=== PATIENT | female | born 1990 | race Caucasian/White ===

== ENCOUNTER → 2016-09-26 | Outpatient (REF) | payer OTHER | LOC: M LAB REF 16:54 | PROVIDERS: ATTEND Obstetrics & Gynecology | DX: Z36 Encounter for antenatal screening of mother (principal); Z3A.00 Weeks of gestation of pregnancy not specified ==

== ENCOUNTER 2016-10-11 01:03 | Inpatient (IN) | payer OTHER ==
[~2016-10-11] VITALS: Ht 162.6 cm; Wt 72.0 kg
[2016-10-11] VITALS (29 sets, daily range): BP systolic 92–220; BP diastolic 50–158
[2016-10-11 02:30] LABS: MEAN CORPUSCULAR HEMOGLOBIN 30.1 pg (27.0-33.0); MEAN CORPUSCULAR HGB CONC 33.6 g/dl (32.0-36.5); MEAN CORPUSCULAR VOLUME 89.5 fl (80.0-96.0); RED CELL DISTRIBUTION WIDTH 13.4 % (11.5-14.5); WHITE BLOOD COUNT 14.4 K/mm3 (4.0-10.0)
[2016-10-11] MEDS ORDERED: LACTATED RINGER'S 1000 ML IV STA (02:50)
[2016-10-11] MEDS ORDERED: LR 1,000 ML IV SCH (02:50)
--- NOTE | 2016-10-11 02:55 | HPEPDOC ---
Obstetrical History & Physical General Date of Admission Oct 11, 2016 at 01:24 History of Present Illness Patient is a 26-year-old female who is a at 38 weeks 2 days gestation with an KRISTI of 10/23/2016 based off of a first trimester ultrasound. Patient presents to labor and delivery with complaints of contractions that started at 2100 on 10/10/2016 and became regular at midnight. She initiated her care at [facility] in her first trimester. Her OB care has been uncomplicated. She reports active movement and denies leaking of fluid or vaginal bleeding. 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 Occupation: teacher. Marital Status: Single Family situation: Spouse/partner home Psychosocial History: No pertinent psych hx * Smoker: non-smoker Alcohol: denies Drugs: denies Abuse Violence Screening Have you been hit/kicked/slapp: No Have you been sexually assault: No Imunizations Tdap status: current (09/26/16) Allergies Coded Allergies: No Known Drug Allergy (Unverified Allergy, Unknown, 10/13/15) Physical Examination Physical Examination GENERAL: Alert and oriented times three. BREAST: . ABDOMEN: Gravid and non-tender to touch. FETUS: Is vertex (VTX) by sterile vaginal examination (SVE), fetus is vertex ( VTX) by Marquis. HEART RATE: Regular rate and rhythm. LUNGS: Clear to auscultation (CTA). EXTREMITIES: No edema. No clonus. Deep tendon reflexes (DTRs) + 2. Vital Signs/I&O Blood pressure 141/87, heart rate 70, temperature 97.6F, respirations 20. Laboratory Data 24H LABS Laboratory Tests 2 10/11/16 01:31: Serology Scanned Report Hepatitis B Testing 10/11/16 01:45: CBC/BMP Laboratory Tests 10/11/16 01:45 Red Blood Count 4.44, Mean Corpuscular Volume 89.5, Mean Corpuscular Hemoglobin 30.1, Mean Corpuscular Hemoglobin Concent 33.6, Red Cell Distribution Width 13.4 Urine Culture: No Growth Pertinent Laboratoy Data Blood Type: O+ RBC Antibody Screen: Negative HIV: Negative Hepatitis B: Negative Rapid Plasma Reagin: Nonreactive Rubella: Immune Chlamydia/Gonorrhea: Negative Group B Streptococcus: Negative Quad Screen Test: Declined Glucose Tolerance Test: 107 Anatomy Ultrasound Ultrasound Date: Jun 07, 2016 Normal Anatomy: Yes Placenta Previa: No Vaginal Examination Dilation: 6 cm Effacement: Other (50%) Station: -2 Cervical Consistency: Soft Presentation: Cephalic presentation Position: Vertex (occiput) Assessment Heart Rate (FHR): 110 Variability: Moderate Accelerations: Positive Decelerations: Early Tocometer Contractions: Yes Frequency: regular, every 2-4 min. Strength: palpated as moderate Multi-drug resistant Organism: No history of MDRO Assessment/Plan Assessment IUP at 38 weeks 2 days gestation Active labor at term Plan Admit to labor and delivery, IV per protocol, labs per protocol, OOB ad ford, clear liquid diet, consult for epidural if patient desires. Anticipate cervical change. NOLVIA RODRIGUES CNM Oct 11, 2016 02:55
[2016-10-11] MEDS ORDERED: BICITRA 30ML SOLN UDC PO ONE (03:00)
[2016-10-11] MEDS ORDERED: FENTANYL 2MCG/ML ROPIVACAINE 0.2% NACL 250 ML CADD As Ordered ONE (03:08)
[2016-10-11] MEDS ORDERED: ePHEDrine SULFATE 25 MG/5 ML(5MG/ML) SYRINGE As Ordered ONE (04:22)
--- NOTE | 2016-10-11 05:12 | IPNPDOC ---
Obstetrical Progress Note Date of Service The patient was seen on 10/11/16 at 03:17. Progress Note SUBJECTIVE: Patient received epidural for pain management. Reports she is comfortable with the epidural. OBJECTIVE: Heart rate: 110, moderate variability, early decelerations, positive accelerations, contractions every 2-3 minutes. Vital signs: Blood pressure 134/80, heart rate 63, respirations 20. ASSESSMENT: IUP at 38 weeks 2 days gestation, active labor, category 1 heart rate tracing PLAN: Anticipate cervical change and spontaneous vaginal delivery. NOLVIA RODRIGUES CNM Oct 11, 2016 05:12
--- NOTE | 2016-10-11 05:17 | IPNPDOC ---
Obstetrical Progress Note Date of Service The patient was seen on 10/11/16 at 03:35. Progress Note SUBJECTIVE: Patient comfortable with no complaints. OBJECTIVE: heart rate baseline 110 with a 6 minute deceleration. SVE: 7/90 /0. scalp electrode placed. Treat uterine resuscitation done to include IV fluid bolus, position change, and oxygen applied. Her heart rate back to baseline after 6 minute deceleration. Vital signs: Blood pressure 95/53, heart rate 84, SPO2 100%. ASSESSMENT: IUP at 38 weeks 2 days gestation, active labor, category 2 heart rate tracing PLAN: Continue with necessary intrauterine resuscitation efforts as necessary. Consider ephedrine via IV if blood pressures do not crease after the bolus. NOLVIA RODRIGUES CNM Oct 11, 2016 05:17
--- NOTE | 2016-10-11 05:27 | IPNPDOC ---
Obstetrical Progress Note Date of Service The patient was seen on 10/11/16 at 04:50. Progress Note SUBJECTIVE: No complaints. Patient has been sleeping. OBJECTIVE: heart rate baseline 125, moderate variability, no decelerations , positive accelerations. Contractions every 2-3 minutes. Vital signs: Blood pressure 107/85, heart rate 63. A dose of ephedrine was given over 0426 due to heart rate baseline changes related to lower blood pressure. ASSESSMENT: IUP at 38 weeks 2 days gestation, active labor, category 1 heart rate tracing PLAN: Anticipate cervical change and spontaneous vaginal delivery. NOLVIA RODRIGUES CNM Oct 11, 2016 05:26
[2016-10-11] MEDS ORDERED: OXYTOCIN 30 UNITS IN 0.9% NaCl 500ML IV BAG (J2590) As Ordered ONE (07:23)
[2016-10-11 08:52] LABS: CORD GAS ABE A -9.2; CORD GAS ABE V -6.8; CORD GAS HCO3 A 21.5 MEQ/L; CORD GAS HCO3 V 22.1 MEQ/L; CORD GAS O2 SAT A 42.9 %; CORD GAS O2 SAT V 35.8 %; CORD GAS PCO2 A 66.5 mmHg; CORD GAS PCO2 V 57.2 mmHg; CORD GAS PH A 7.127 UNITS; CORD GAS PH V 7.205 UNITS; CORD GAS PO2 A 24.2 mmHg; CORD GAS PO2 V 19.3 mmHg; CORD GAS SBC V 17.6 MEQ/L; CORD GAS TCO2 A 23.5 MEQ/L; CORD GAS TCO2 V 23.9 MEQ/L
[2016-10-11] MEDS ORDERED: ePHEDrine SULFATE 25 MG/5 ML(5MG/ML) SYRINGE IV PRN (09:00)
[2016-10-11] MEDS ORDERED: REFRIGERATOR IV KEYS XX PRN (09:00)
[2016-10-11] MEDS ORDERED: LACTATED RINGER'S 1000 ML IV PRN (09:00)
[2016-10-11] MEDS ORDERED: diphenhydrAMINE INJ 50MG/ML VIAL (J1200) IV PRN (09:00)
[2016-10-11] MEDS: PRENATAL VITAMIN TAB PO SCH (09:00)
[2016-10-11] MEDS ORDERED: EPIDURAL/PCA KEYS XX PRN (09:00)
[2016-10-11] MEDS ORDERED: NALOXONE INJ 0.4 MG/1 ML VIAL (J2310) IV PRN (09:00)
[2016-10-11] MEDS ORDERED: FENTANYL/ROPIVACAINE/NACL CADD 250 ML EPIDURAL SCH (09:00)
[2016-10-11] MEDS ORDERED: ONDANSETRON 4MG/2ML VIAL (J2405) IV PRN (09:00)
[2016-10-11] MEDS ORDERED: EPIDURAL COMMENT XX SCH (09:00)
[2016-10-11] MEDS ORDERED: OXYTOCIN DRIP 30 UNITS in APPROPRIATE DILUENT 1 EA IV SCH (09:14)
[2016-10-11] MEDS ORDERED: ACETAMINOPHEN 500 MG TAB PO PRN (09:15)
[2016-10-11] MEDS ORDERED: METHYLERGONOVINE MALEATE 0.2 MG TAB PO PRN (09:15)
[2016-10-11] MEDS ORDERED: MEASLES,MUMPS,RUBELLA VACCINE INJ (MMR-II) (90707) SC SCH (09:15)
[2016-10-11] MEDS ORDERED: DIBUCAINE 1% OINTMENT 30GM TOP PRN (09:15)
[2016-10-11] MEDS ORDERED: DOCUSATE SODIUM 100 MG CAP PO PRN (09:15)
[2016-10-11] MEDS ORDERED: RHOGAM 300 MCG (1500 IU) INJ (J2790) IM SCH (09:15)
[2016-10-11] MEDS ORDERED: ANUSOL HC CREAM 30GM TOP PRN (09:15)
--- NOTE | 2016-10-11 09:26 | DNPDOC ---
Delivery Note Delivery Note Nicole Is a 26-year-old now G 1 P 1001 at 38.2 weeks' gestation who presented to labor and delivery in active labor. She received an epidural for pain management. She progressed to fully dilated at 0720. A moderate amount of clear fluid noted with pushing. Patient pushed to a spontaneous vaginal delivery at 0835 to a living male in the ELIZABETH position with restitution to ROT. No nuchal cord noted. Shoulders delivered with ease and the corpus immediately followed. A moderate amount of thick meconium noted after delivery of the corpus. Baby placed on maternal abdomen it was crying and active with stimulation. Cord clamped 2 and cut by father of the baby after the cord stopped pulsating. Cord gases obtained and cord blood obtained. Multiple variable D cells were noted during labor along with a low heart rate baseline. Spontaneous delivery of intact placenta with a three-vessel cord by Augustine mechanism at 0844. Placenta sent to pathology due to the presence of a long cord, meconium at delivery, and then insertion of the cord. Uterine hemostasis achieved by rapid infusion of IV Pitocin and uterine fundal massage. Perineum and vagina inspected and found to Bilateral labial lacerations. The right labial laceration was repaired with a 4. 0 Vicryl Rapide. EBL 400. Infant's 9/ 10. Weight 7 lbs. 2 oz, 3224 g. [place]'s name is Guzman and is breast-feeding. Mom and baby stable and doing well. Item Value Date Time Cord Arterial Blood pH 7.127 UNITS 10/11/16846 Cord Arterial Blood PCO2 66.5 mmHg 10/11/16846 Cord Arterial Blood PO2 24.2 mmHg 10/11/16846 Cord Arterial Blood HCO3 21.5 MEQ/L 10/11/16846 Cord Arterial Blood Total CO2 23.5 MEQ/L 10/11/16846 Cord Arterial Blood Base Excess -9.2 10/11/16846 Cord Arterial Base Excess (Standard 16.0 MEQ/L 10/11/16846 Cord Arterial Bld Oxygen Saturation 42.9 % 10/11/16846 Cord Venous Blood pH 7.205 UNITS 10/11/16846 Cord Venous Blood PO2 19.3 mmHg 10/11/16846 Cord Venous Blood PCO2 57.2 mmHg 10/11/16846 Cord Venous Blood HCO3 22.1 MEQ/L 10/11/16846 Cord Venous Blood Total CO2 23.9 MEQ/L 10/11/16846 Cord Venous Base Excess (Actual) -6.8 10/11/16846 Cord Venous Base Excess (Standard) 17.6 MEQ/L 10/11/16846 Cord Venous Blood Oxygen Saturation 35.8 % 10/11/16846 NOLVIA RODRIGUES CNM Oct 11, 2016 09:26
[2016-10-11] MEDS: IBUPROFEN 800 MG TAB PO PRN (11:20)
[2016-10-12 06:14] VITALS: BP 122/77
[2016-10-12] MEDS: IBUPROFEN 800 MG TAB PO PRN ×2 (09:19→21:02)
[2016-10-12] MEDS: PRENATAL VITAMIN TAB PO SCH (09:19)
[2016-10-12 18:00] VITALS: BP 126/70
[2016-10-13 05:54] VITALS: BP 125/82
[2016-10-13] MEDS: IBUPROFEN 800 MG TAB PO PRN (07:52)
[2016-10-13] MEDS: PRENATAL VITAMIN TAB PO SCH (08:51)
[2016-10-13] MEDS ORDERED: IBUP-1114 PO (10:30)
[2016-10-13] MEDS ORDERED: PRENTAB9 PO (10:30)
[2016-10-13] MEDS ORDERED: ACET50TA PO (10:30)
== END 2016-10-13 11:20 | disposition home or self-care (01) | DRG 775 ==
LOC: M LDO 01:03 → M LDI 01:24 → M OBS 10:52
PROVIDERS: ADMIT Obstetrics & Gynecology; ATTEND Advanced Practice Midwife
PROC: 10E0XZZ Delivery of Products of Conception, External Approach (ICD-10-PCS; principal; 2016-10-11)
PROC: 0HQ9XZZ Repair Perineum Skin, External Approach (ICD-10-PCS; 2016-10-11)
DX: O70.0 First degree perineal laceration during delivery (principal); Z3A.38 38 weeks gestation of pregnancy; O76 Abnormality in fetal heart rate and rhythm complicating labor and delivery; O77.0 Labor and delivery complicated by meconium in amniotic fluid; Z37.0 Single live birth

== ENCOUNTER → 2017-05-06 | Outpatient (CLI) | payer OTHER ==
[~2017-05-06] MED LIST: ACET50TA PO; IBUP-1114 PO; PRENTAB9 PO
--- NOTE | 2017-05-06 11:10 | REP ---
RIGHT FOOT, FOUR VIEWS: HISTORY: Contusion. There is no acute fracture or dislocation. The joint spaces are normal in appearance. IMPRESSION: There is no acute fracture or dislocation. Signed by Praful Toure MD 05/06/2017 11:47 A
== END ==
LOC: M WUC 09:52
PROVIDERS: ATTEND Physician Assistant
DX: S90.31XA Contusion of right foot, initial encounter (principal); X58.XXXA Exposure to other specified factors, initial encounter; Y92.89 Other specified places as the place of occurrence of the external cause; Y93.89 Activity, other specified; Y99.8 Other external cause status

== ENCOUNTER → 2018-01-14 | Outpatient (REF) | payer OTHER ==
[2018-01-14 17:35] LABS: MEAN CORPUSCULAR HGB CONC 34.2 g/dl (32.0-36.5); MEAN CORPUSCULAR VOLUME 84.6 fl (80.0-96.0); PLATELET COUNT, AUTOMATED 261 10^3/uL (150-450); RED BLOOD COUNT 4.49 10^6/uL (4.00-5.40); RED CELL DISTRIBUTION WIDTH 13.2 % (11.5-14.5); WHITE BLOOD COUNT 10.1 10^3/uL (4.0-10.0)
[2018-01-14 20:06] LABS: HCG, SERUM QUANTITATIVE 13774 MIU/ML
[2018-01-16 11:13] LABS: RUBELLA IgG QUALITATIVE IMMUNE (IMMUNE)
[2018-01-16 11:34] LABS: HEPATITIS B SURFACE ANTIGEN NEGATIVE (NEGATIVE)
[2018-01-16 11:43] LABS: HIV 1&2 SCREEN CENTAUR NEGATIVE (NEGATIVE)
== END ==
LOC: M LAB REF 16:36
DX: O36.80X0 Pregnancy with inconclusive fetal viability, not applicable or unspecified (principal); Z3A.00 Weeks of gestation of pregnancy not specified

== ENCOUNTER → 2018-02-18 | Outpatient (REF) | payer OTHER | LOC: M LAB REF 17:12 | DX: Z34.81 Encounter for supervision of other normal pregnancy, first trimester (principal); Z36.89 Encounter for other specified antenatal screening ==

== ENCOUNTER → 2018-03-18 | Outpatient (REF) | payer OTHER ==
[2018-03-19 09:23] LABS: CHLAMYDIA DNA AMPLIFICATION NEGATIVE (NEGATIVE); GC DNA AMPLIFICATION NEGATIVE (NEGATIVE)
== END ==
LOC: M LAB REF 17:01
DX: Z34.82 Encounter for supervision of other normal pregnancy, second trimester (principal); Z3A.00 Weeks of gestation of pregnancy not specified

== ENCOUNTER → 2018-06-18 | Outpatient (CLI) | payer OTHER ==
[2018-06-18 16:47] LABS: HEMATOCRIT 35.6 % (36.0-47.0); HEMOGLOBIN 11.9 g/dl (12.0-15.5); MEAN CORPUSCULAR HEMOGLOBIN 29.9 pg (27.0-33.0); MEAN CORPUSCULAR HGB CONC 33.4 g/dl (32.0-36.5); MEAN CORPUSCULAR VOLUME 89.4 fl (80.0-96.0); PLATELET COUNT, AUTOMATED 177 10^3/uL (150-450); RED BLOOD COUNT 3.98 10^6/uL (4.00-5.40); RED CELL DISTRIBUTION WIDTH 12.8 % (11.5-14.5); WHITE BLOOD COUNT 13.7 10^3/uL (4.0-10.0)
[2018-06-18 17:03] LABS: GLUCOSE CHALLENGE TEST 1 HOUR 87 MG/DL (LESS THAN 140)
== END ==
LOC: M LAB 15:07
DX: Z34.82 Encounter for supervision of other normal pregnancy, second trimester (principal); Z36.89 Encounter for other specified antenatal screening
CPT/HCPCS: 82950

== ENCOUNTER 2018-07-22 20:42 | Outpatient (CLI) | payer OTHER | END 2018-07-22 22:04 | disposition home or self-care (01) | LOC: M LDO 20:42 | DX: O26.893 Other specified pregnancy related conditions, third trimester (principal); Z3A.33 33 weeks gestation of pregnancy | CPT/HCPCS: 59025 ==

== ENCOUNTER → 2018-07-27 | Outpatient (CLI) | payer OTHER ==
[~2018-07-27] MED LIST changes: -ACET50TA PO; +MAPA500T17 PO
--- NOTE | 2018-07-28 04:49 | REP ---
Clinical: Pelvic pain with left ovarian cyst . Technique: Transabdominal pelvic ultrasound with color Doppler evaluation of the ovaries. Findings: Bladder is collapsed. The patient is 33 weeks (FHR equals 153 bpm). Right ovary is normal in appearance of vascularity without torsion measuring 1.9 x 1.1 x 2.2 cm. Left ovary is normal in vascularity and measures 5.4 x 3.4 x 4.8 cm (RI 0.57) with 3.7 cm simple cyst and 3.1 cm complex cyst. Impression: 1. Simple and complex left ovarian cysts. 2. No evidence for torsion. 3. 33 weeks . Electronically Signed by Osbaldo Mota MD 07/28/2018 04:41 A
== END ==
LOC: M RAD 16:08
PROVIDERS: ATTEND Advanced Practice Midwife
DX: N83.292 Other ovarian cyst, left side (principal); Z36.89 Encounter for other specified antenatal screening; Z3A.33 33 weeks gestation of pregnancy

== ENCOUNTER → 2018-08-14 | Outpatient (REF) | payer OTHER ==
[~2018-08-14] MED LIST changes: -MAPA500T17 PO; +MAPA500T2 PO
== END ==
LOC: M LAB REF 17:07
PROVIDERS: ATTEND Advanced Practice Midwife
DX: Z34.83 Encounter for supervision of other normal pregnancy, third trimester (principal)

== ENCOUNTER 2018-08-27 14:21 | Inpatient (IN) | payer OTHER ==
[2018-08-27] VITALS (23 sets, daily range): BP systolic 98–144; BP diastolic 54–90
[~2018-08-27] VITALS: Ht 162.6 cm; Wt 78.0 kg
[2018-08-27] MEDS ORDERED: CALCIUM CARBONATE 500 MG CHEW U/D PO ONE (15:00)
[2018-08-27] MEDS ORDERED: LACTATED RINGER'S 1000 ML IV STA (16:39)
[2018-08-27] MEDS ORDERED: LR 1,000 ML IV SCH (16:39)
[2018-08-27] MEDS ORDERED: PROMETHAZINE INJ 25 MG/ML VIAL (J2550) IV ONE (17:00)
[2018-08-27] MEDS ORDERED: BUTORPHANOL 2 MG/ML INJ (J0595) IV ONE (17:00)
--- NOTE | 2018-08-27 17:30 | HPEPDOC ---
Obstetrical History & Physical General Date of Admission Aug 27, 2018 at 14:21 Primary Care Physician: NOLVIA RODRIGUES CNM History of Present Illness Patient is a 28-year-old female who is a at 38.4 weeks gestation with an KRISTI of 09/06/18 based off of her LMP and consistent with her first trimester ultrasound. She initiated care in her first trimester. Her has been complicated by a large ovarian cyst at 9 cm. She presents to L&D in active labor. She reports bloody show and active movement. She denies leaking of fluid. Chief Complaint: Active Labor Information Provided By: Patient Age: 28 : 2 Term: 1 Pre-term: 0 Abortions: 0 Livin Care Care: Good Care Dating Final EDC: Aug 27, 2018 Final EDC by: LMP LMP: Nov 30, 2017 EGA at Admission: 38.4 Antepartum Course Height (inches): 64 Pre- weight (lbs.): 148 Admission Weight (lbs.): 175 Change in Weight (lbs.): 27 Past Medical History Past Obstetrical History : Past Obstetrical History: Primgravida Gestation: 38.2 Type of Delivery: Spontaneous Vaginal Del. 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 Past Medical History Medical History varicella as a child ovarian cysts Surgical History: Denies/None Family History Significant Family History: Hypertension, Other (dementia) Social History Marital Status: Psychosocial History: No pertinent psych hx * Smoker: non-smoker Alcohol: Denies Drugs: denies Abuse Violence Screening Have you been hit/kicked/slapp: No Have you been sexually assault: No Imunizations Tdap status: current Allergies Coded Allergies: No Known Drug Allergy (Unverified Allergy, Unknown, 08/27/18) Medications Scheduled Multivitamins/ ( 27-0.8 mg) 1 Tab Tab, 1 TAB PO DAILY Physical Examination Physical Examination GENERAL: Alert and oriented times three. BREAST: . ABDOMEN: Gravid and non-tender to touch. FETUS: Is vertex (VTX) by sterile vaginal examination (SVE), fetus is vertex (VTX) by Marquis. HEART RATE: Regular rate and rhythm. LUNGS: Clear to auscultation (CTA). EXTREMITIES: No edema. No clonus. Deep tendon reflexes (DTRs) + 2. Laboratory Data 24H LABS Laboratory Tests 2 08/27/18 14:26: Serology Scanned Report Hepatitis B Testing Urine Culture: No Growth Pertinent Laboratoy Data Blood Type: O+ RBC Antibody Screen: Negative HIV: Negative Hepatitis B: Negative Hepatitis C: Negative Rapid Plasma Reagin: Nonreactive Rubella: Immune Chlamydia/Gonorrhea: Negative Group B Streptococcus: Negative Glucose Tolerance Test: 87 Anatomy Ultrasound Ultrasound Date: Apr 10, 2018 Placenta Location: Anterior Normal Anatomy: Yes Placenta Previa: No Vaginal Examination Dilation: 5 cm Effacement: 80% Station: -3 Cervical Consistency: Soft Cervical Position: Posterior Presentation: Cephalic presentation Position: Vertex (occiput) Assessment Heart Rate (FHR): 140 Variability: Moderate Accelerations: Positive Decelerations: Variable Tocometer Contractions: Yes Frequency: every 2-5 min. Strength: palpated as moderate Multi-drug resistant Organism: No history of MDRO Assessment/Plan Assessment IUP at 38.4 weeks gestation active labor GBS negative Category II FHR tracing Plan Admit to L&D. OOB ad ford Communications Marketing Intern and consent. Diet: clears. Group B Streptococcus (GBS) negative. Labs and intravenous (IV) per unit protocol. Lactated Ringers (LR): Bolus 800 mL, then at 125 mL/hr. Anticipate cervical change and . NOLVIA RODRIGUES CNM Aug 27, 2018 17:30
--- NOTE | 2018-08-27 17:33 | IPNPDOC ---
Text Note Date of Service The patient was seen on 08/27/18. NOTE Subjective: Patient desires pain medication. She reports her back is killing her. Objective: FHR: 140, moderate variability, positive accelerations, no decelerations. Contractions every 2-5 minutes. Assessment: IUP at 38.4 weeks gestation, Category I FHR tracing, active labor Plan: Patient receiving IV fluid bolus and Category II strip resolved to a Category I tracing. Orders for Stadol and Phenergan given for patient. Cynthia MCCORMACK, I+O Cynthia MCCORMACK, I+O NOLVIA RODRIGUES CNM Aug 27, 2018 17:33
[2018-08-27 17:41] LABS: HEMATOCRIT 37.1 % (36.0-47.0); HEMOGLOBIN 12.5 g/dl (12.0-15.5); MEAN CORPUSCULAR HEMOGLOBIN 29.6 pg (27.0-33.0); MEAN CORPUSCULAR HGB CONC 33.7 g/dl (32.0-36.5); MEAN CORPUSCULAR VOLUME 87.9 fl (80.0-96.0); PLATELET COUNT, AUTOMATED 163 10^3/uL (150-450); RED BLOOD COUNT 4.22 10^6/uL (4.00-5.40); WHITE BLOOD COUNT 8.5 10^3/uL (4.0-10.0)
[2018-08-27] MEDS ORDERED: FENTANYL 2MCG/ML ROPIVACAINE 0.2% IN 0.9% NACL 100ML IVBAG As Ordered ONE (19:33)
[2018-08-27] MEDS ORDERED: diphenhydrAMINE INJ 50MG/ML VIAL (J1200) IV PRN (19:35)
[2018-08-27] MEDS ORDERED: ePHEDrine SULFATE 25 MG/5 ML(5MG/ML) SYRINGE IV PRN (19:35)
[2018-08-27] MEDS ORDERED: FENTANYL/ROPIVACAINE/NACL BAG 100 ML EPIDURAL SCH (19:35)
[2018-08-27] MEDS ORDERED: EPIDURAL/PCA KEYS XX PRN (19:35)
[2018-08-27] MEDS ORDERED: LACTATED RINGER'S 1000 ML IV PRN (19:35)
[2018-08-27] MEDS ORDERED: ONDANSETRON 4MG/2ML VIAL (J2405) IV PRN (19:35)
[2018-08-27] MEDS ORDERED: REFRIGERATOR IV KEYS XX PRN (19:35)
[2018-08-27] MEDS ORDERED: EPIDURAL COMMENT XX SCH (19:35)
[2018-08-27] MEDS ORDERED: NALOXONE INJ 0.4 MG/1 ML VIAL (J2310) IV PRN (19:35)
[2018-08-27] MEDS ORDERED: OXYTOCIN 30 UNITS IN 0.9% NaCl 500ML IV BAG (J2590) As Ordered ONE (21:02)
[2018-08-27] MEDS ORDERED: OXYTOCIN DRIP 30 UNITS in APPROPRIATE DILUENT 1 EA IV SCH (21:36)
[2018-08-27] MEDS ORDERED: DOCUSATE SODIUM 100 MG CAP PO PRN (21:45)
[2018-08-27] MEDS ORDERED: MEASLES,MUMPS,RUBELLA VACCINE INJ (MMR-II) (90707) SC SCH (21:45)
[2018-08-27] MEDS ORDERED: DIBUCAINE 1% OINTMENT 30GM TOP PRN (21:45)
[2018-08-27] MEDS ORDERED: METHYLERGONOVINE MALEATE 0.2 MG TAB PO PRN (21:45)
[2018-08-27] MEDS ORDERED: RHOGAM 300 MCG (1500 IU) INJ (J2790) IM SCH (21:45)
[2018-08-27] MEDS ORDERED: ACETAMINOPHEN 500 MG TAB PO PRN (21:45)
[2018-08-27] MEDS ORDERED: ANUSOL HC CREAM 30GM TOP PRN (21:45)
--- NOTE | 2018-08-27 21:46 | DNPDOC ---
[facility] Delivery Note Delivery Note DATE OF DELIVERY: 08/27/2018 at 2116 PREDELIVERY DIAGNOSIS: 38-4/7 weeks' gestation and labor. POST DELIVERY DIAGNOSIS: Delivered. PROCEDURE: Spontaneous vaginal delivery. VETERINARIAN: Nolvia Jean CNM, TRINI ANESTHESIA: epidural ESTIMATED BLOOD LOSS: 300 mL. FINDINGS: 7 pounds 2 ounces; 3240 grams; female infant, Score 8/9, nuchal cord times 1 loose. DELIVERY SUMMARY: Patient is a 28-year-old female who is now a who presented to L&D in active labor. She spontaneously ruptured clear fluid at 1912. The patient received an epidural for pain management. The patient progressed to fully dilated at 2053 and pushed to a living female in the VIKKI position with restitution to LOT. A nuchal cord was noted. The anterior shoulder delivered with ease and the corpus immediately followed. The baby was placed s kin-to-skin active and crying with stimulation. The cord was clamped after pulsation ceased x2 and cut by the FOB. A 3-vessel cord was noted. The placenta delivered spontaneously and intact at 2120. Uterine hemostasis was achieved via rapid infusion of IV Pitocin and fundal massage. The vagina and perineum were inspected and found to have bilateral labial abrasions. Nicole plans to breastfeed. They are naming her "Kalee Sparks." Both mom and baby are in stable condition. NOLVIA JEAN CNM Aug 27, 2018 21:46
[2018-08-27] MEDS: IBUPROFEN 800 MG TAB PO PRN (23:48)
[2018-08-28 05:43] VITALS: BP 99/50
--- NOTE | 2018-08-28 07:46 | NUR ---
PPD#1 S: Doing well w/o complaints. Decreasing lochia, pain controlled, + voids and ambulation. O: vss, AF Gen: well appearing abd: soft, nttp with ff@u-1 ext: neg calf tenderness A/P: PPD#1 s/p vaginal delivery -currently stable -continue routine care -d/c plans for tomorrow Dimple Taylor MD
[2018-08-28] MEDS: PRENATAL VITAMINS CHEWABLE TABLET PO SCH (08:43)
[2018-08-28] MEDS: IBUPROFEN 800 MG TAB PO PRN ×2 (10:02→20:25)
[2018-08-28 18:00] VITALS: BP 104/64
[2018-08-29 05:59] VITALS: BP 117/63
[2018-08-29] MEDS: PRENATAL VITAMINS CHEWABLE TABLET PO SCH (07:38)
[2018-08-29] MEDS: IBUPROFEN 800 MG TAB PO PRN (08:26)
[2018-08-29] MEDS ORDERED: IBUP-1022 PO (09:20)
[2018-08-29] MEDS ORDERED: MAPA500T2 PO (09:20)
== END 2018-08-29 11:55 | disposition home or self-care (01) | DRG 807 ==
LOC: M LDI 14:21 → M OBS 08-28 07:04
PROVIDERS: ADMIT Advanced Practice Midwife; ATTEND Advanced Practice Midwife
PROC: 10E0XZZ Delivery of Products of Conception, External Approach (ICD-10-PCS; principal; 2018-08-27)
DX: O69.82X0 Labor and delivery complicated by other cord entanglement, without compression, not applicable or unspecified (principal); Z37.0 Single live birth; Z3A.38 38 weeks gestation of pregnancy; N83.201 Unspecified ovarian cyst, right side; O34.83 Maternal care for other abnormalities of pelvic organs, third trimester

== ENCOUNTER → 2018-10-12 | Outpatient (CLI) | payer OTHER ==
[~2018-10-12] MED LIST changes: +IBUP-1022 PO
--- NOTE | 2018-10-12 20:07 | REP ---
Clinical: Ovarian cysts . Comparison: 07/27/2018. Technique: Transabdominal pelvic ultrasound followed by transvaginal examination for better evaluation of the endometrium and adnexa with color Doppler evaluation of the ovaries. Findings: Bladder is unremarkable and measures 10.3 x 6.7 x 9.2 cm . Normal retroflexed uterus measures 9.3 x 4.1 x 5.2 cm . The endometrial complex measures 11.1 mm thickness. No discrete uterine or endometrial abnormalities are appreciated. Bilateral ovaries are normal in vascularity without evidence for torsion. Right ovary measures 2.7 x 1.8 x 2.0 cm ; R I = 0.50 . Left ovary measures 7.3 x 4.5 x 3.9 cm and again includes multiple cysts including complex 6.1 x 3.4 x 3.1 cm cyst ; R I = 0.51 . No free fluid. Impression: 1. Normal retroverted uterus and normal right ovary. 2. Simple and complex left ovarian cysts again identified measuring up to 6.1 cm. Differential diagnosis should include endometrioma and correlation is recommended. Electronically Signed by Osbaldo Mota MD 10/12/2018 07:58 P
== END ==
LOC: M SMT 08:40
PROVIDERS: ATTEND Advanced Practice Midwife
DX: N83.292 Other ovarian cyst, left side (principal); N83.291 Other ovarian cyst, right side

== ENCOUNTER → 2019-03-19 | Outpatient (CLI) | payer OTHER ==
--- NOTE | 2019-03-19 14:39 | REP ---
ULTRASOUND RIGHT AXILLA: Real-time sonographic evaluation of right axilla performed for a reported palpable abnormality which has been present for approximately 2 years. Ultrasound shows a subcutaneous oval cyst which appears benign measuring approximately 4 x 2 mm. No other cystic or solid nodule is seen in the right axillary region. IMPRESSION: Subcutaneous cyst in the right axillary region measures 4 x 2 mm. Otherwise no cystic or solid nodule identified. Electronically Signed by Mason Dan MD 03/22/2019 11:17 A
--- NOTE | 2019-03-19 19:57 | REP ---
PELVIC ULTRASOUND: Real-time sonographic evaluation of the pelvis is performed utilizing transabdominal and endovaginal technique. Bladder measures 3.0 x 3.3 x 6.2 cm. Uterus measures 8.3 x 3.2 x 5.0 cm. Endometrial thickness is 8 mm. Uterus is retroverted. Right ovary measures 2.7 x 1.5 x 2.5 cm with no mass. Left ovary is enlarged 6.7 x 3.7 x 6.1 cm. There is a complex cyst of the left ovary containing debris, measuring 5.9 x 3.7 x 5.5 cm. No torsion is seen bilaterally, resistive index right ovary 0.52 and left ovary 0.59. IMPRESSION: Complex cyst left ovary with internal debris. Maximum diameter 5.9 cm. Prior study 10/12/2018 also showed a complex left ovarian cyst with a maximum diameter of 6.1 cm. There was also a more simple appearing cystic component on the prior study. Today's study demonstrates increased complex component. The findings may represent endometrioma. Electronically Signed by Mason Dan MD 03/22/2019 11:32 A
== END ==
LOC: M RAD 11:17
PROVIDERS: ATTEND Advanced Practice Midwife
DX: L72.3 Sebaceous cyst (principal); N83.292 Other ovarian cyst, left side

== ENCOUNTER 2019-04-09 11:57 | Day surgery (SDC) | payer OTHER ==
[~2019-04-09] VITALS: Ht 162.6 cm; Wt 71.7 kg
[~2019-04-09 11:57] MED LIST changes: +LR 1,000 ML IV ONE; +NUVAMIS2 VA; +ceFAZolin SOD 1 GM in D5W MINI-BAG PLUS 50 ML IV ONE
[2019-04-09 13:15] LABS: URINE PREG TEST NEGATIVE (NEGATIVE)
[2019-04-09] MEDS ORDERED: LIDOCAINE 1% SDV INJ 30 ML VIAL As Ordered ONE (16:58)
[2019-04-09] MEDS ORDERED: BUPIVACAINE HCL 0.25% 30 ML VIAL As Ordered ONE (16:58)
[2019-04-09] MEDS ORDERED: MIDAZOLAM INJ 2 MG/2 ML VIAL (J2250) As Ordered ONE (17:51)
[2019-04-09] MEDS ORDERED: propofoL 500 MG/50 ML VIAL As Ordered ONE ×2 (17:52→18:30)
[2019-04-09] MEDS ORDERED: fentaNYL 100 MCG/2 ML INJECTION (J3010) As Ordered ONE (17:52)
[2019-04-09] MEDS ORDERED: LIDOCAINE 2% INJ 100 MG/5 ML SDV (FOR ANES.) As Ordered ONE (17:52)
[2019-04-09] MEDS ORDERED: ONDANSETRON 4MG/2ML VIAL (J2405) As Ordered ONE (18:12)
[2019-04-09] MEDS ORDERED: dexameTHASONE 4 MG/ML 1ML VIAL (J1100) As Ordered ONE (18:12)
[2019-04-09] MEDS ORDERED: KETOROLAC 60 MG/2 ML VIAL (J1885) As Ordered ONE (18:55)
[2019-04-09 20:29] VITALS: BP 122/82
--- NOTE | 2019-05-04 20:25 | ROOPDOC ---
[facility] Report Of Operation Report of Operation DATE OF PROCEDURE: 04/09/19 PREPROCEDURE DIAGNOSES: Lipoma, right axilla. POSTPROCEDURE DIAGNOSES: Lipoma, right axilla. PROCEDURE: Excision lipoma, right axilla 5 x 5 cm). SURGEON: Didier Mckeon MD MOTOR POLARIZER: ANESTHESIA: Monitored anesthesia care. ESTIMATED BLOOD LOSS: Approximately 20 mL. COMPLICATIONS: None. SPECIMEN: Lipoma. PROCEDURE NOTE: Patient is a bulky adipose fat pad in the axilla and it is markedly hypertrophic compared to the other side but they did not see any distinct lobulated lipomatous tissue separate from the axillary fat pad. DESCRIPTION OF PROCEDURE: Patient received Ancef 2 g IV preoperatively for wound prophylaxis. She was brought to the operating room, placed supine on the table. Compression boots placed on both extremities for DVT prophylaxis. Monitoring leads were placed, oxygen provided by a facial mask. IV sedation is started. Her left arm, shoulder neck and chest was prepped and draped widely in the usual sterile fashion. We paused for a surgical timeout using both pre-incision safety checklist to verify correct patient, procedure site and additional clinical information prior to beginning the procedure. Patient is bulky adipose fat pad that is about twice the size of the other axilla. The area of the left axilla was infiltrated with local anesthesia. I used a mixture of 1% lidocaine and 1/4% Marcaine. A transverse incision was created at the middle of the axillary triangle and deepened through to the superficial subcutaneous tissue. Circumferential skin flaps were then created. Though externally the fat pad appears bulky there is no distinct or separate lipomatous tissue present and side. I dissected down to the clavipectoral fascia and remove the bulky fat pad tissue. Wound was irrigated. Hemostasis ensured. I placed Michael hemostatic powder to the wound bed prior to closure. This was then closed in layers with 3-0 Vicryl placed interrupted in the subcutaneous tissue and dermis and a running suture of 4-0 Monocryl placed subcutaneous regularly was placed. Steri-Strips, gauze dressing and Tegaderm used for dressing. Patient was promptly awakened and brought to recovery room in stable condition. DIDIER MCKEON MD May 04, 2019 20:25
== END 2019-04-09 20:29 | disposition home or self-care (01) ==
LOC: M SDC 11:57
PROVIDERS: ATTEND Surgery
DX: D17.1 Benign lipomatous neoplasm of skin and subcutaneous tissue of trunk (principal)
CPT/HCPCS: 24071; 84703; 88304; J0690; J1100; J1885; J2250; J2405; J3010

== ENCOUNTER → 2020-04-11 | Outpatient (CLI) | payer OTHER ==
[~2020-04-11] MED LIST changes: -LR 1,000 ML IV ONE; -ceFAZolin SOD 1 GM in D5W MINI-BAG PLUS 50 ML IV ONE
--- NOTE | 2020-05-09 14:52 | REP ---
PELVIC ULTRASOUND CLINICAL: Pelvic pain with a history of ovary cyst. TECHNIQUE: Transabdominal pelvic ultrasound followed by transvaginal examination for better evaluation of the endometrium and adnexa. COMPARISON: 03/29/2019 FINDINGS: Normal retroverted uterus measures 8.9 x 4.3 x 5.2 cm. The endometrial complex measures 8 mm thickness. No discreet uterine or endometrial abnormalities appreciated. Right ovary is normal in appearance and vascularity without torsion and measures 3.4 x 2.0 x 2.7 cm (RI 0.41). The left ovary measures 7.8 x 4.0 x 4.6 cm (RI 0.55) and includes a 7.5 x 3.4 x 4.4 cm complex cyst with homogeneous echogenic debris. Findings are similar to prior examination, and differential diagnosis includes chocolate cyst and endometrioma. No pelvic fluid. Bladder is normal and measures 9.4 x 8.3 x 5.5 cm. IMPRESSION: * Homogeneous complex left ovarian cyst similar to prior examination measuring 7.5 cm maximal diameter. Differential diagnosis includes chocolate cyst and endometrioma. * Normal uterus and right ovary. MTDD
== END ==
LOC: M WHC 09:00
PROVIDERS: ATTEND Advanced Practice Midwife
DX: R10.2 Pelvic and perineal pain (principal)

== ENCOUNTER → 2020-05-22 | Outpatient (CLI) | payer OTHER ==
[~2020-05-22] MED LIST changes: +E-Z-GAS II EFFERVESCENT PACKET (SODIUM BICARB./CITRIC ACID/SIMETHICONE) As Ordered ONE; +E-Z-HD 98% w/w 340GM SUSP BTL As Ordered ONE; +E-Z-PAQUE 96% w/w SUSP 176GM BTL As Ordered ONE
--- NOTE | 2020-05-25 13:45 | REP ---
ESOPHAGRAM This procedure was performed by Sera Almodovar [facility], under the direct supervision of Dr. Paz. The images were reviewed with Dr. Paz prior to dictation. A single view PA chest x-ray is submitted as a or manager film. The superior mediastinal structures are midline. The heart size is within normal limits. The lungs are clear. Liquid barium and gas-producing granules were given in the erect position, as well as liquid barium in the prone oblique position, in order to perform a double-contrast esophagram examination. The oral and pharyngeal stages of deglutition were unremarkable. Esophageal transport is prompt and efficient. There is no evidence of esophagitis, stricture, or mucosal ring. There is no hiatal hernia. No gastroesophageal reflux was visualized during the exam. IMPRESSION: Unremarkable esophagram. 0.2 minutes of fluoroscopy time was utilized for this procedure. MTDD
== END ==
LOC: M RAD 07:56
PROVIDERS: ATTEND Otolaryngology
DX: K21.9 Gastro-esophageal reflux disease without esophagitis (principal)

== ENCOUNTER → 2020-06-27 | Outpatient (CLI) | payer OTHER ==
[~2020-06-27] MED LIST changes: +BARIUM SULFATE 700 MG TABLET (E-Z-DISK) As Ordered ONE; -E-Z-GAS II EFFERVESCENT PACKET (SODIUM BICARB./CITRIC ACID/SIMETHICONE) As Ordered ONE; -E-Z-HD 98% w/w 340GM SUSP BTL As Ordered ONE; +VARIBAR NECTAR 40% w/v 240ML SUSP BTL As Ordered ONE; +VARIBAR PUDDING 40% w/v 230ML TUBE As Ordered ONE
--- NOTE | 2020-06-27 18:03 | REP ---
INDICATION: R13.10 DYSPHAGIA. COMPARISON: None. TECHNIQUE: The procedure was performed by Sera Almodovar, [facility], under the direct supervision of Dr. Dan. The procedure was performed with Mihaela Negrete from speech pathology present. 5 ml aliquots of thin, pudding, mixed fruit, soft food, hard food and pill consistency barium was administered. FINDINGS: Flash penetration was visualized with thin liquid. The detailed report of this examination will be provided by speech pathology. . IMPRESSION: Flash penetration with thin liquid, a detailed report will be provided by speech pathology. 1.3 minutes of fluoroscopy time was utilized for this procedure. Some fluoroscopic images are performed with last image hold technology. These images require no additional radiation <Electronically signed by Sera Almodovar > 06/27/20 [id number] <Electronically signed by Mason Dan > 06/27/20 [id number]
== END ==
LOC: M RAD 15:13
PROVIDERS: ATTEND Otolaryngology
DX: R13.10 Dysphagia, unspecified (principal)

== ENCOUNTER → 2020-10-30 | Outpatient (REF) | payer OTHER ==
[~2020-10-30] MED LIST changes: -BARIUM SULFATE 700 MG TABLET (E-Z-DISK) As Ordered ONE; -E-Z-PAQUE 96% w/w SUSP 176GM BTL As Ordered ONE; -VARIBAR NECTAR 40% w/v 240ML SUSP BTL As Ordered ONE; -VARIBAR PUDDING 40% w/v 230ML TUBE As Ordered ONE
== END ==
LOC: M LAB REF 18:40
PROVIDERS: ATTEND Dermatology
DX: D49.2 Neoplasm of unspecified behavior of bone, soft tissue, and skin (principal)

== ENCOUNTER → 2021-03-22 | Outpatient (CLI) | payer OTHER | LOC: M PLALAB 15:40 | PROVIDERS: ATTEND Advanced Practice Midwife | DX: N83.202 Unspecified ovarian cyst, left side (principal) ==

== ENCOUNTER → 2021-05-17 | Outpatient (REF) | payer OTHER | LOC: M SFHCWAGY 10:45 | PROVIDERS: ATTEND Advanced Practice Midwife | DX: Z12.4 Encounter for screening for malignant neoplasm of cervix (principal); Z77.9 Other contact with and (suspected) exposures hazardous to health | CPT/HCPCS: 87624; G0123 ==

== ENCOUNTER → 2021-12-27 | Outpatient (CLI) | payer OTHER ==
[2021-12-27 17:36] LABS: HEMATOCRIT 38.5 % (36.0-47.0); HEMOGLOBIN 12.8 g/dl (12.0-15.5); MEAN CORPUSCULAR HGB CONC 33.2 g/dl (32.0-36.5); MEAN CORPUSCULAR VOLUME 87.3 fl (80.0-96.0); PLATELET COUNT, AUTOMATED 261 10^3/uL (150-450); RED BLOOD COUNT 4.41 10^6/uL (4.00-5.40); WHITE BLOOD COUNT 8.7 10^3/uL (4.0-10.0)
[2021-12-27 18:14] LABS: ALBUMIN 3.7 GM/DL (3.2-5.2); ALT/SGPT 35 U/L (12-78); BILIRUBIN,TOTAL 0.2 MG/DL (0.2-1.0); BLOOD UREA NITROGEN 16 MG/DL (7-18); CALCIUM LEVEL 9.7 MG/DL (8.5-10.1); CARBON DIOXIDE LEVEL 29 MEQ/L (21-32); CHLORIDE LEVEL 101 MEQ/L (98-107); CREATININE FOR GFR 0.67 MG/DL (0.55-1.30); FERRITIN 78 NG/ML (8-252); FREE T4 0.79 NG/DL (0.76-1.46); GLOMERULAR FILTRATION RATE > 60.0 (>60); GLUCOSE, FASTING 84 MG/DL (70-100); POTASSIUM SERUM 4.5 MEQ/L (3.5-5.1); SODIUM LEVEL 135 MEQ/L (136-145); TOTAL PROTEIN 7.2 GM/DL (6.4-8.2)
== END ==
LOC: M PLALAB 15:17
PROVIDERS: ATTEND Advanced Practice Midwife
DX: R53.83 Other fatigue (principal)

== ENCOUNTER → 2022-09-13 | Outpatient (REF) | payer OTHER | LOC: M LAB REF 21:44 | PROVIDERS: ATTEND Physician Assistant | DX: J02.9 Acute pharyngitis, unspecified (principal) ==

== ENCOUNTER → 2023-09-19 | Outpatient (REF) | payer OTHER ==
[~2023-09-19] MED LIST changes: +ETON1VAG7 VA; -NUVAMIS2 VA
== END ==
LOC: M PLALAB 15:22
PROVIDERS: ATTEND Advanced Practice Midwife
DX: Z12.4 Encounter for screening for malignant neoplasm of cervix (principal); R87.810 Cervical high risk human papillomavirus (HPV) DNA test positive
CPT/HCPCS: 87624; G0123

== ENCOUNTER → 2023-10-29 | Outpatient (CLI) | payer OTHER | LOC: M WHC 15:50 | PROVIDERS: ATTEND Advanced Practice Midwife | DX: R10.2 Pelvic and perineal pain (principal) ==

== ENCOUNTER → 2024-12-29 | Outpatient (REF) | payer OTHER ==
[2025-01-01 16:57] LABS: HPV APTIMA Not Detected (Not Detected)
== END ==
LOC: M PLALAB 15:25
PROVIDERS: ATTEND Advanced Practice Midwife
DX: Z12.4 Encounter for screening for malignant neoplasm of cervix (principal)
CPT/HCPCS: 87624; G0123

== ENCOUNTER → 2025-04-06 | Outpatient (CLI) | payer OTHER ==
[~2025-04-06] MED LIST changes: -IBUP-1022 PO; +IBUP600T42 PO
[2025-04-06 18:11] LABS: ESTIMATED AVERAGE GLUCOSE 103.0 MG/DL (60-110)
[2025-04-08 09:07] LABS: DEHYDROEPIANDROSTERONE SULFATE 213.0 mcg/dL (19-237)
[2025-04-12 15:14] LABS: TESTOSTERONE FREE (DIRECT) 3.1 pg/mL (0.1-6.4); TESTOSTERONE TOTAL FOR T&D 20.0 ng/dL (2-45)
== END ==
LOC: M PLALAB 15:35
PROVIDERS: ATTEND Advanced Practice Midwife
DX: L70.9 Acne, unspecified (principal)